=== PATIENT | male | born 1960 | race Caucasian/White ===

== ENCOUNTER 2021-04-30 14:33 | Emergency (ER) | payer SELFPAY ==
[2021-04-30 15:16] VITALS: BP 159/84; PULSE 70; RESP 16; TEMP 98
--- NOTE | 2021-04-30 16:30 | ED ---
Recheck HPI - General Chief Complaint: Recheck/Abnormal Lab/Rx Stated Complaint: Needs Covid Swab Time Seen by Provider: 04/30/21 16:29 Source: patient Mode of arrival: ambulatory Limitations: no limitations - History of Present Illness Initial Comments: 61-year-old male patient presented to the emergency department today requesting COVID-19 testing in order to [place] the border [place]. He denies any current symptoms or recent exposure. Declined any further medical screening exam. - Related Data Home Medications Medication Instructions Recorded Confirmed No Known Home Medications 04/30/21 04/30/21 Allergies Allergy/AdvReac Type Severity Reaction Status Date / Time No Known Allergies Allergy Verified 04/30/21 15:16 Review of Systems ROS Statement: Those systems with pertinent positive or pertinent negative responses have been documented in the HPI. ROS Other: All systems not noted in ROS Statement are negative. Past Medical History Past Medical History: No Reported History History of Any Multi-Drug Resistant Organisms: None Reported Past Surgical History: No Surgical Hx Reported Past Psychological History: No Psychological Hx Reported Smoking Status: Never smoker Past Alcohol Use History: None Reported Past Drug Use History: None Reported General Exam Limitations: no limitations General appearance: alert, in no apparent distress Neurological exam: Present: alert, oriented X3 Skin exam: Present: warm, dry, normal color. Absent: rash Course Vital Signs 04/30/21 15:11 Temperature 98.0 F Pulse Rate 70 Respiratory 16 Rate Blood Pressure 159/84 O2 Sat by Pulse 99 Oximetry Medical Decision Making - Medical Decision Making 61-year-old male patient presented to the emergency department today requesting testing for COVID-19 and noted across the border into [place]. He tested negative was provided with results. My attending is Dr. Voss. - Lab Data Lab Results 04/30/21 Range/Units 15:17 Coronavirus (PCR) Not Detected (Not Detectd) Disposition Clinical Impression: Encounter for laboratory testing for COVID-19 virus Disposition: HOME SELF-CARE Condition: Good Instructions (If sedation given, give patient instructions): Coronavirus Disease 2019 (COVID-19) Is patient prescribed a controlled substance at d/c from ED?: No Referrals: Nonstaff,Physician [REFERRING] - 1-2 days Time of Disposition: 16:29
== END 2021-04-30 16:40 | disposition home or self-care (01) ==
LOC: EC 14:33 → EDBD 14:33 → EC 16:40
DX: Z20.822 Contact with and (suspected) exposure to COVID-19 (principal)
CPT/HCPCS: 87635; 99282